=== PATIENT | male | born 1975 | race Caucasian/White ===

== ENCOUNTER 2017-06-26 13:28 | Outpatient (CLI) | payer BC, OTHER ==
[2015-02-15 19:44] VITALS: O2SAT 97
== END 2017-06-26 13:29 | disposition home or self-care (01) | DRG 556 ==
LOC: CONVCARE 13:28
PROVIDERS: ATTEND Orthopaedic Surgery
DX: M25.562 Pain in left knee (principal)
CPT/HCPCS: 73564